=== PATIENT | female | born 1945 | race Caucasian/White ===

== ENCOUNTER 2019-01-26 11:00 | Outpatient (CLI) | payer MEDICARE, OTHER ==
[2019-04-29 06:09] VITALS: BMI 21.2
== END 2019-01-26 11:30 | disposition home or self-care (01) ==
LOC: D.MAMMO 11:00
PROVIDERS: ATTEND Nurse Practitioner Family
DX: N64.4 Mastodynia (principal)

== ENCOUNTER 2019-04-29 05:10 | Day surgery (SDC) | payer MEDICARE, OTHER ==
[2019-04-28 14:55] LABS: BASOPHILS 0.1 % (0-2); EOSINOPHILS 1.1 % (0-7); HEMATOCRIT 37.4 % (36.0-48.0); IMMATURE GRANULOCYTES 0.3 % (0-5); MCH 30.9 pg (26.0-34.0); MCHC 34.8 g/dL (31.0-37.0); MCV 88.8 fL (80.0-100.0); MEAN PLATELET VOLUME 9.7 fL (7.4-10.4); MONOCYTES 6.9 % (2-11); NEUTROPHILS 61.6 % (40-80); PLATELET COUNT 215 10x3/uL (130-400); RBC 4.21 10x6/uL (4.00-5.40); RDW 12.9 % (11.5-14.5); WBC 7.3 10x3/uL (4.8-10.8)
[2019-04-28 15:17] LABS: CALC OSMOLALITY 279 mosm/kg (275-300); CALCIUM 8.6 mg/dL (8.5-10.1); CARBON DIOXIDE 27.3 mmol/L (21.0-32.0); CHLORIDE - SERUM 104 mmol/L (98-107); CREATININE - SERUM 0.8 mg/dL (0.6-1.3); GLUCOSE 118 mg/dL (74-106); POTASSIUM - SERUM 3.6 mmol/L (3.5-5.1); SODIUM 139 mmol/L (136-145); UREA NITROGEN 14 mg/dL (7-18); eGFR NON AFRICAN AMERICAN 75 mL/min (90-120)
[~2019-04-29] VITALS: Ht 177.8 cm; Wt 67.1 kg
[2019-04-29 06:09] VITALS: BP 139/97; Ht 177.8 cm; Wt 67.1 kg
[2019-04-29 11:06] VITALS: BP 113/50
--- NOTE | 2019-04-29 13:00 | NUR ---
PT ARRIVED TO FLOOR FROM PACU, VSS AND WNL. PT DROWSY BUT EASY TO WAKE. DENIES ANY NEEDS AT THIS TIME, AT BEDSIDE. WILL CONT TO FOLLOW POC
[2019-04-29 16:00] VITALS: BP 114/56
--- NOTE | 2019-04-29 18:13 | NUR ---
PT RESTING IN BED, SPOUSE AT BEDSIDE, PT DENIES ANY PAIN AT THIS TIME, BAUM CATHTER IN PLACE DRAINING BLUE TENTED URINE (METHLENE BLUE DYE WAS USED TO CHECK PLACEMENT DURING OR PROCEDURE) . WILL CONT TO FOLLOW POC
--- NOTE | 2019-04-29 19:30 | NUR ---
REPORT RECEIVED, WILL CONTINUE POC. PATIENT IS A/OX4, UP WITH ASSIST. LYING IN SUPINE POSITION, AT BEDSIDE. BAUM DRAINING CLEAR, BLUE URINE BY GRAVITY TO DRAINAGE SYSTEM TO RT SIDE OF BED. IV TO LT AC, PATENT, INFUSING LR @125ML/HR, DRGS C/D/I. RR EVEN AND UNLABORED ON ROOM AIR. NO S/S OF DISTRESS OBSERVED. PATIENT DENIES NEEDS AT THIS TIME. CL IN REACH, BED LOCKED AND LOWERED. WILL CTM.
[2019-04-29 20:00] VITALS: BP 129/48
[2019-04-30 01:21] VITALS: BP 120/59
--- NOTE | 2019-04-30 04:35 | NUR ---
I have reviewed this patient and I concur with the Shift Assessment completed by the Licensed Practical Nurse today this shift.
--- NOTE | 2019-04-30 07:20 | NUR ---
PT RESTING IN BED, SHIFT ASSESSMENT PERFORMED. DENIES ANY NEEDS AT THIS TIME, WILL CONT TO FOLLOW POC
[2019-04-30 08:02] VITALS: BP 130/68
--- NOTE | 2019-04-30 09:00 | NUR ---
CALLED AND ASKED NURSE TO REMOVE BAUM CATHETER AND REMOVE VAGINAL PACKING. BAUM CATHETER REMOVED WITH CATHETER TIP INTACT AND VAGINAL PAKING REMOVED WITH BOTH PIECES OF KERLIX INTACT. PT TOLERATED WELL
--- NOTE | 2019-04-30 12:15 | NUR ---
PT RESTING IN BED EATING LUNCH, DENIES ANY NEEDS AT THIS TIME, WILL CONT TO FOLLOW POC
--- NOTE | 2019-04-30 14:00 | NUR ---
DISCHARGE INSTRUCTIONS REVIEWED WITH PT AND ALL QUESTIONS ANSWERED. PIV REMOVED WITH CATHETER TIP INTACT. PT TOLERATED WELL. PT TAKEN TO THE FRONT IN A WHEELCHAIR.
--- NOTE | 2019-05-15 09:56 | OP ---
PATIENT NAME: CHECO GEORGE MEDICAL RECORD: [id number] :49 LOCATION:D.FORMERLY [facility] ADMISSION DATE: SURGEON: JOSE RUBALCAVA MD DATE OF OPERATION: 04/29/2019 PREOPERATIVE DIAGNOSES: 1. Uterine prolapse. 2. Cystocele. POSTOPERATIVE DIAGNOSES: 1. Uterine prolapse. 2. Cystocele. PROCEDURE PERFORMED: 1. Laparoscopically assisted vaginal hysterectomy. 2. Uterosacral vault suspension. 3. Anterior colporrhaphy. 4. Cystoscopy. SURGEON: Jose Rubalcava MD SPOT WASHER: Dr. Frankel ANESTHESIOLOGIST: Dr. Flores ANESTHETIC: General. FINDINGS: Uterus prolapses to the hymenal ring. There is also an associated second-degree midline cystocele. At the time of hysteroscopy, there is an unremarkable bladder mucosa. Tubes and ovaries were also unremarkable at the time of laparoscopy. What was seen of the abdominal anatomy was unremarkable. SPECIMENS REMOVED: Uterus with cervix, ovaries and tubes. SPECIMEN DISPOSITION: Pathology. ESTIMATED BLOOD LOSS: Less than or equal to 200 cc. FLUIDS: 1 liter of lactated Ringer's. URINE OUTPUT: 150 cc of clear urine. COMPLICATIONS: None. DRAINS: Jennings to gravity. INDICATIONS: The patient is a 73-year-old female with a vaginal bulge and pressure with standing and exertion. The patient also has associated low back pain as well. The patient was examined and found to have uterine prolapse. The patient declines pessary and is consented for hysterectomy and anterior colporrhaphy. DESCRIPTION OF PROCEDURE: After informed consent was assured, the patient was taken to the operating room where anesthetic was obtained without difficulty. The patient was now prepped and draped in the usual sterile fashion. The OPERATIVE REPORT [id number] CHECO GEORGE patient had been placed in [facility]. The infraumbilical incision was made to accommodate a 5-mm trocar, which was inserted without difficulty. Then, 5 mm trocars were also placed in right and left lower quadrants. Through the 5-mm port, a camera was inserted with the patient in Trendelenburg position and pneumoperitoneum established. The bowel swept free of the pelvis. The right tube and ovary were now elevated. Using a Thunderbeat coagulation cutter, the attachment of the ovary to the adnexa was compressed, coagulated, and . The dissection was carried out over the infundibulopelvic ligament and underneath the uterine ovarian ligament to the round ligament. This was repeated on the contralateral side. Once the ovary and tube was free, the attention was directed vaginally. With the legs positioned for the vaginal portion of this case, a weighted speculum was introduced into the cervix and circumferentially incised with Bovie cautery. Bladder flap was identified. The posterior cul-de-sac was entered with scissors and the peritoneum tacked to the mucosa with a 0 Vicryl stitch. Using Lupillo clamps, the uterosacral ligaments were isolated, clamped, cut and tied and held to be used at a later portion of this case. Dissection was carried out anteriorly with Bovie cautery. The anterior pouch was entered and a Kerwin retractor placed. The remaining portions of the cardinals and broad ligament serially clamped, cut and tied until the uterus was freed. The uterus and ovaries and tubes were passed to the attendant. Uterosacral ligaments were now grasped with Allis clamps approximately 2-3 cm above the level of the vaginal cuff. Using an Ethibond stitch and beginning on the left, the uterosacral ligament was incorporated into the peritoneum of the cul-de-sac and the stitch passed up through the right uterosacral ligament. This was now tied creating a ligament complex in the midline. The vaginal cuff was now closed to this. The ligatures were passed from the cuff through this ligament complex from laterally to medially. Once this had been performed, they were tied securing the cuff to ligament support. The previously mentioned stitches on the uterosacral ligament were now cut. Remaining defects in the vaginal cuff were closed with interrupted stitches. Attention was now directed to the anterior compartment. The full thickness space was now infiltrated with 0.5% lidocaine solution with epinephrine. The #15 blade was used to incise this and with Metzenbaum scissors and cottonoids, the full-thickness dissection was begun. This dissection was carried out laterally. Upon conclusion of the dissection, the entire anterior compartment was exposed. Reaching laterally with Allis clamps, the endopelvic fascia was grasped and using a vertical mattress stitch, the tissues underneath the bladder neck were secured and then tied. This was completed posteriorly to anteriorly. Gelfoam was placed within these spaces and a second layer of imbrication using 2 stitches was now performed. The mucosa was trimmed and the mucosa closed with 2-0 Vicryl. Jennings catheter has been started after cystoscopy was performed and reveals no injury to the bladder mucosa and good flow of urine from the ureters. The vaginal packing was placed. Sponge, lap and needle count was correct at the close of this portion of the procedure. Reestablishment of the pneumoperitoneum and investigation of the pelvis revealed adequate hemostasis. Jus was placed over the dissection field. Pneumoperitoneum was released as accessory ports were removed. The primary port was now removed and all sites closed with a subcuticular stitch and Dermabond applied. Sponge, lap, and needle count has been correct times 2. The patient was awakened and went to the recovery area in stable condition. TRANSINT:[id number] Voice Confirmation ID: [id number] DOCUMENT ID: [id number] OPERATIVE REPORT [id number] CHECO GEORGE JOSEPH E MD at 0956 CC: [id number] DICTATION DATE: 05/13/19 170 DIE REPAIR MACHINIST: 05/14/[address] [facility] 04/30/19 [facility] [address] [place] [address]
== END 2019-04-30 16:01 | disposition home or self-care (01) ==
LOC: D.OPS 05:10 → D.M3 05:10 → D.OPS 07:00 → D.PAN 07:00 → D.OPS 07:30 → D.M3 10:41 → D.OPS 04-30 16:01
PROVIDERS: ATTEND Obstetrics & Gynecology
DX: N81.4 Uterovaginal prolapse, unspecified (principal)

== ENCOUNTER → 2019-07-28 23:56 | Outpatient (CLI) | payer MEDICARE, OTHER ==
[2019-04-29 06:09] VITALS: BMI 21.2
== END | disposition home or self-care (01) ==
LOC: D.MAMMO 10:00
PROVIDERS: ATTEND Nurse Practitioner Family
DX: R92.8 Other abnormal and inconclusive findings on diagnostic imaging of breast (principal)